=== PATIENT | female | born 1995 | race Caucasian/White ===

== ENCOUNTER 2018-03-29 17:57 | Emergency (ER) | payer OTHER, MEDICAID ==
[~2018-03-29] VITALS: Ht 162.6 cm; Wt 47.6 kg
[2018-03-29] MEDS ORDERED: HYDROCODONE-AP1 EAC6 PO (18:29)
[2018-03-29] MEDS ORDERED: IBUPROFEN 600600 M1 PO (18:30)
[2018-03-29] MEDS ORDERED: KEFLEX500 M1 PO (18:32)
[2018-03-29 18:50] VITALS: BP 96/57
== END 2018-03-29 18:51 | disposition home or self-care (01) ==
LOC: M.ERS 17:57
DX: S61.211D Laceration without foreign body of left index finger without damage to nail, subsequent encounter (principal); S61.213D Laceration without foreign body of left middle finger without damage to nail, subsequent encounter; X58.XXXD Exposure to other specified factors, subsequent encounter; Z88.0 Allergy status to penicillin; Z88.1 Allergy status to other antibiotic agents